=== PATIENT | male | born 1960 | race Caucasian/White ===

== ENCOUNTER → 2016-08-24 | Day surgery (SDC) | payer OTHER ==
[~2016-08-24] VITALS: Ht 170.2 cm; Wt 90.7 kg
[~2016-08-24] MED LIST: ALLOPURINOL300 M1 PO; AMLODIPINE BESYL5 M1 PO; LISINOPRIL5 M1 PO; METFORMIN HCL1000 M2 PO; TOPROL XL100 M1 PO
--- NOTE | 2016-08-26 11:16 | Operative Report ---
Operative/Inv Procedure Report Surgery Date: 08/24/16 Name of Procedure: Excision of hidradenitis right buttock, with complex closure, measuring 14 cm in total Pre-Operative Diagnosis: Hidradenitis right buttock Post-Operative Diagnosis: Same Estimated Blood Loss: scant Surgeon/[employer]: ELENITA MALAVE,RENY Kirkpatrick Anesthesia: general endotracheal tube Operative/Procedure Note Note: Patient was placed initially supine and after induction of anesthesia repositioned right lateral down, his buttocks and perineum were clipped prepped and draped in usual sterile fashion we used tape to help retract the left buttock, this hidradenitis was an area about 8 cm across there were multiple areas of fistulas, thickened skin with some oozing of fluid from granulation tissue it was erythematous but not really indurated no pus. We had to make 3 separate transverse incisions to encompass the whole area, trying to preserve as much skin as possible. The the inferior most incision was a little medial towards the gluteal cleft that was 3 cm long above that with about a 2 cm bridge of skin was another incision about 4 cm long these communicated underneath, up top we needed a larger incision to encompass all the areas that was 7 cm long. Using these 3 incisions we excised the underlying hidradenitis, scar, acute and chronic inflammation that included removing some more skin as the process was primarily in the skin, but there was a subcutaneous component as well. Care was taken to try to make sure that the skin left over was viable during closure I had to trim some dusky edges. The closure was complex in that we had to undermine and closed in layers some parts of the incisions leaving other parts open, they were too tight to reapproximate, they were left to granulate by secondary intention we used interrupted 4-0 Biosyn sutures subdermally were possible and then 4-0 nylon for the skin itself all 3 incisions had open portions, they connected underneath in the same space we packed those spaces lightly with iodoform gauze tape followed by fluff gauze and paper tape. EBL minimal lap and sponge counts correct wound expectancy contamiated IV fluids crystalloid complications none patient tolerated the procedure well was awakened and returned to recovery room in satisfactory condition.
== END ==
LOC: STS 00:56
DX: L73.2 Hidradenitis suppurativa (principal); F17.200 Nicotine dependence, unspecified, uncomplicated; E11.9 Type 2 diabetes mellitus without complications; Z79.84 Long term (current) use of oral hypoglycemic drugs
CPT/HCPCS: 88305; J0690; J2250